=== PATIENT | male | born 1945 | race Caucasian/White ===

== ENCOUNTER 2017-02-02 16:06 | Emergency (ER) | payer OTHER ==
[~2017-02-02] VITALS: Ht 180.3 cm; Wt 80.5 kg
[2017-02-02 16:18] VITALS: TEMP 36.8; Ht 180.3 cm; Wt 80.5 kg
[2017-02-02 16:21] VITALS: O2SAT 95
[2017-02-02] MEDS ORDERED: OPTIRAY 320 IV PRN (17:00)
[2017-02-02 17:17] LABS: HEMATOCRIT 49.1 % (42-52); MEAN CELL VOLUME 97.2 fL (80-100); MEAN CORPUSCULAR HEMOGLOBIN 32.9 pg (25-34); MEAN CORPUSCULAR HGB CONC 33.8 g/dl (32-36); MEAN PLATELET VOLUME 9.7 fL (7.4-10.4); PLATELET COUNT 151 K/uL (130-400); RED BLOOD COUNT 5.05 M/uL (4.7-6.1); WHITE BLOOD COUNT 11.65 K/uL (4.8-10.8)
--- NOTE | 2017-02-02 17:26 | DIAGNOSTIC IMAGING REPORT ---
CHEST 2 VIEWS ROUTINE HISTORY: 71 years-old Male ABDOMINAL PAIN/GI acute generalized abdominal pain with shortness of breath. COMPARISON: None available TECHNIQUE: AP and lateral views of the chest FINDINGS: A lateral view is limited secondary to position of the patient's arms. Cardiac silhouette is upper limits of normal. There is mild pulmonary vascular congestion. Atherosclerosis of the aorta. No pneumothorax. Small left pleural effusion with hazy subsegmental bibasilar opacities. Minimal fluid tracks along the minor fissure. Bones of the chest appear grossly intact. Levoscoliosis of the left thoracic spine noted. IMPRESSION: Mild pulmonary vascular congestion with small left pleural effusion and bibasilar subsegmental opacities suggesting atelectasis. Pneumonia thought to be less likely. The above report was generated using voice recognition software. It may contain grammatical, syntax or spelling errors. Electronically signed by: Paulo Alonso M.D. 02/02/2017 5:25 PM Dictated Date/Time: 02/02/2017 5:23 PM
[2017-02-02 17:32] LABS: ALT/SGPT 38 U/L (12-78); BLOOD UREA NITROGEN 15 mg/dl (7-18); BUN/CREATININE RATIO 12.1 (10-20); CALCIUM 9.5 mg/dl (8.5-10.1); CARBON DIOXIDE 22 mmol/L (21-32); CHLORIDE 106 mmol/L (98-107); CREATININE 1.22 mg/dl (0.60-1.40); GLUCOSE 156 mg/dl (70-99); SODIUM 139 mmol/L (136-145)
[2017-02-02 17:37] LABS: ALKALINE PHOSPHATASE 83 U/L (45-117); AST/SGOT 27 U/L (15-37)
[2017-02-02] MEDS ORDERED: SERT25TA PO (17:45)
[2017-02-02] MEDS ORDERED: METO25TA3 PO (17:45)
[2017-02-02] MEDS ORDERED: FLUT1INH (17:45)
[2017-02-02] MEDS ORDERED: ZNTT/150 PO (17:45)
[2017-02-02] MEDS ORDERED: FURO-85 PO (17:45)
[2017-02-02] MEDS ORDERED: TERB250T51 PO (17:45)
[2017-02-02] MEDS ORDERED: ACET-1256 PO (17:45)
[2017-02-02] MEDS ORDERED: ASPI81TA28 PO (17:45)
[2017-02-02] MEDS ORDERED: ATOR-24 PO (17:45)
[2017-02-02] MEDS ORDERED: TRAZ50TA35 PO (17:45)
[2017-02-02] MEDS ORDERED: PLV75 PO (17:45)
[2017-02-02] MEDS ORDERED: ALBUAER (17:45)
--- NOTE | 2017-02-02 18:19 | DIAGNOSTIC IMAGING REPORT ---
ABD/PELVIS IV CONTRAST ONLY CT DOSE: 596.84 mGy.cm HISTORY: Pain. Nodule. L groin pain/bulging TECHNIQUE: Multiaxial CT images of the abdomen and pelvis were performed following the use of intravenous contrast. A dose lowering technique was utilized adhering to the principles of ALARA. COMPARISON STUDY: None. FINDINGS: Mild bibasilar parenchymal infiltrative change. Liver is uniform throughout. Gallbladder is negative for distention. Pancreas is unremarkable. Right kidney demonstrates a 2.5 mm nonobstructing calcification at its upper pole. No evidence for hydronephrosis. Left kidney demonstrates moderate hydroureteronephrosis. There is moderate perinephric infiltrative change. There is a 3 mm calculus of the involving the distal left ureter. There is a 6 mm calculus of the left ureteral vesicle junction. Bowel pattern is considered nonobstructive throughout. There is small fat-containing left inguinal hernia. There is no evidence of bowel containment. IMPRESSION: 1. 6 mm obstructing calculus left ureterovesical junction. 2. Partial obstructing calculus measuring 3 mm distal aspect left ureter. 3. Moderate left hydroureteronephrosis with moderate perinephric infiltrative change 4. Small fat-containing left inguinal hernia. No evidence for bowel containment or obstruction 5. Bibasilar parenchymal infiltrative change The above report was generated using voice recognition software. It may contain grammatical, syntax or spelling errors. Electronically signed by: Dexter Zamora M.D. 02/02/2017 6:17 PM Dictated Date/Time: 02/02/2017 6:13 PM
--- NOTE | 2017-02-02 18:40 | EMERGENCY ROOM VISIT NOTE ---
ED Visit Note First contact with patient: 16:48 This Patient was discussed with the physician per diem physical therapist assistant, Sukhdev Castro PA-C. The pertinent historical and physical exam findings were confirmed. I agree with the studies ordered and with the interpretations of these studies. I agree with the disposition and care plan.
[2017-02-02 18:55] LABS: URINE APPEARANCE CLEAR (CLEAR); URINE BILIRUBIN NEG (NEG); URINE COLOR YELLOW; URINE NITRITE NEG (NEG); URINE SPECIFIC GRAVITY 1.034 (1.000-1.030); UROBILINOGEN NEG (NEG)
[2017-02-02 19:07] LABS: MANUAL MICROSCOPIC REQUIRED? NO; REVIEW REQ? NO
[2017-02-02] MEDS ORDERED: TAMS0.4C38 PO (19:44)
[2017-02-02] MEDS ORDERED: HYDR-5688 PO (19:44)
[2017-02-02 20:00] VITALS: BP 119/64; PULSE 92; O2SAT 91
[2017-02-02] MEDS ORDERED: TAMSULOSIN HCL 0.4 MG CAP PO ONE (20:00)
[2017-02-02] MEDS ORDERED: NORCO 5/325MG HOME PACK PO ONE (20:00)
[2017-02-02 20:03] LABS: BASO % 0.2 %; BASO ABS # 0.02 K/uL (0-0.2); COMPLETE YES; IG% 0.3 %; MONO % 4.5 %
--- NOTE | 2017-02-02 20:19 | EMERGENCY ROOM VISIT NOTE ---
History First contact with patient: 16:25 Chief Complaint: LEG PAIN,LEG INJURY Stated Complaint: LEFT HIP & LEG PAIN History of Present Illness The patient is a 71 year old male who presents to the Emergency Room with complaints of abrupt onset of severe left groin pain while having a bowel movement this afternoon. The patient reports that the pain radiating into his lower back and down into the left thigh. The daughter reports that the patient called her to the house because of the pain, and the family called 911 for evaluation. The reports that she noticed a large bulge in the left groin at that time, but the bulge has since resolved. The patient was administered IV morphine and Zofran en route, and currently rates his discomfort a 3 out of 10. The patient denies any history of inguinal hernias. The patient does have a significant history of peripheral vascular disease, status post bilateral lower extremity stenting in 2013. The patient does report a prior history of OR. The patient is also on different inhalers for emphysema. The patient reports that his oxygen levels at home are usually in the middle to upper 80s. He denies any recent chest pain, shortness of breath, nausea or diaphoresis. He denies any history of chronic back pain. The patient denies any recent constipation, melena or urinary symptoms. He also denies any left lower extremity paresthesias or numbness. He does have a history of left lower extremity wounds secondary to his peripheral vascular disease that have healed well. The patient also has chronic left-sided weakness secondary to CVA. Review of Systems HEENT: Denies dizziness, visual problems, hearing loss, tinnitus. Denies difficulty swallowing or oral lesions. PULMONARY: Denies cough, shortness of breath, sputum production or hemoptysis. CARDIOVASCULAR: Denies chest pain, palpitations, dyspnea on exertion, orthopnea or peripheral edema. GASTROINTESTINAL: Denies diarrhea, constipation, nausea, vomiting, or abdominal pain. GENITOURINARY: Denies dysuria, frequency, urgency or nocturia. NEUROLOGIC: Denies history of epilepsy, CVA, TIA or chronic headaches. MUSCULOSKELETAL: Denies history of joint tenderness/swelling. SKIN: Denies rashes or lesions. PSYCHIATRIC: Denies history of depression or mental illness. ENDOCRINE: Denies history of diabetes or thyroid disorders. Past Medical/Surgical History Medical Problems: (1) Coronary artery disease (2) Depression (3) GERD (gastroesophageal reflux disease) (4) Hypercholesterolemia (5) Hypertension (6) Myocardial infarction (7) Peripheral vascular disease of lower extremity Surgical Problems: (1) History of peripheral vascular stents Family History Unremarkable Social History Smoking Status: Former Smoker Alcohol Use: none Marital Status: Occupation Status: retired Current/Historical Medications Scheduled Acetaminophen (Tylenol), 2 TAB PO Q6 Aspirin (Aspirin Ec), 81 MG PO DAILY Atorvastatin (Lipitor), 1 TAB PO DAILY Furosemide (Lasix), 1 TAB PO DAILY Metoprolol Succ (Toprol Xl) (Toprol-Xl), 25 MG PO DAILY Ranitidine (Zantac), 1 TAB PO BID Sertraline (Zoloft), 1 TAB PO DAILY Tamsulosin Hcl (Flomax), 0.4 MG PO DAILY Terbinafine Hcl (Lamisil), 1 TAB PO DAILY Scheduled PRN Hydrocodone/Acetaminophen 5MG/325MG ([place] 5MG/325MG), 1-2 TABLET PO Q4H PRN for Pain Miscellaneous Medications Albuterol Sulfate (Proventil Hfa) Clopidogrel Bisulfate (Clopidogrel), 1 TAB PO Fluticasone Furoate-Vilanterol (Breo Ellipta) Trazodone Hcl (Trazodone), 50 MG PO Physical Exam Vital Signs Date Time Temp Pulse Resp B/P (MAP) Pulse Ox O2 Delivery O2 Flow Rate FiO2 02/02/17 20:00 92 18 119/64 91 Room Air 02/02/17 18:15 88 18 137/78 87 Room Air 02/02/17 16:43 85 02/02/17 16:31 95 Nasal Cannula 4.0 02/02/17 16:21 95 Nasal Cannula 4.0 02/02/17 16:18 36.8 91 26 132/55 85 Room Air Physical Exam CONSTITUTIONAL: Healthy and well nourished. Alert and oriented X 3 with positive affect. Patient does not appear in any acute distress. HEENT: Normocephalic, atraumatic. Pupils equal, round and reactive. No scleral icterus or conjunctival injection/pallor. Ears and nares are clear. NECK: Full active range of motion without discomfort. No JVD or carotid bruits noted. RESPIRATORY: Patient has global rhonchi without crackles, wheezing or stridor. CARDIOVASCULAR: Occasional irregular rhythm with no murmurs, rubs or gallops. GASTROINTESTINAL: Bowel sounds present in all quadrants. Abdomen is soft and nontender to palpation. No palpable pulsatile masses noted. Negative CVA tenderness. GENITOURINARY: No palpable scrotal masses or masses within the left inguinal canal. MUSCULOSKELETAL: Full range of motion of all joints without discomfort. The patient has no tenderness to palpation through the lower lumbar spine or SI joints. Negative logroll. Negative straight leg raise. Examination of the left anterior groin does not show any palpable masses or tenderness to palpation through the groin region. Patient has 2+ palpable pedal pulses bilaterally. No pretibial pitting edema bilaterally. INTEGUMENTARY: No rash or other significant dermatologic conditions noted. Patient has notable xerosis of the lower extremities and evidence for a left or extremity wound. HEMATOLOGIC: No ecchymosis or petechiae noted. NEUROLOGIC: No focal neurologic deficits noted. Left foot and toes are sensory intact. Medical Decision & Procedures ER Provider Diagnostic Interpretation: My interpretation of an ECG shows a normal sinus rhythm of [address] elevations or other conduction abnormalities. Computer reading suggest possible age indeterminate inferior and posterior anterior infarcts. No prior ECGs are available for comparison. My interpretation of a two-view chest x-ray does not show any obvious consolidations or cardiac negative. Radiologist report is as follows: CHEST ONE VIEW PORTABLE HISTORY: 50 years-old Female CHEST PAIN acute atypical chest pain COMPARISON: Chest radiograph 10/22/2014 TECHNIQUE: Portable upright AP view of the chest FINDINGS: Cardiomediastinal and hilar silhouettes are within normal limits. No pneumothorax, pleural effusion, focal airspace consolidation or overt pulmonary edema. The bones of the chest are grossly intact. IMPRESSION: No acute cardiopulmonary process. CT of the abdomen and pelvis with IV contrast only shows 2 left distal ureteral calculus with the largest measuring 6 mm at the UVJ. A moderate hydronephrosis is noted as well. Also seen is a fat-containing inguinal hernia. Radiologist report is as follows: ABD/PELVIS IV CONTRAST ONLY CT DOSE: 596.84 mGy.cm HISTORY: Pain. Nodule. L groin pain/bulging TECHNIQUE: Multiaxial CT images of the abdomen and pelvis were performed following the use of intravenous contrast. A dose lowering technique was utilized adhering to the principles of ALARA. COMPARISON STUDY: None. FINDINGS: Mild bibasilar parenchymal infiltrative change. Liver is uniform throughout. Gallbladder is negative for distention. Pancreas is unremarkable. Right kidney demonstrates a 2.5 mm nonobstructing calcification at its upper pole. No evidence for hydronephrosis. Left kidney demonstrates moderate hydroureteronephrosis. There is moderate perinephric infiltrative change. There is a 3 mm calculus of the involving the distal left ureter. There is a 6 mm calculus of the left ureteral vesicle junction. Bowel pattern is considered nonobstructive throughout. There is small fat-containing left inguinal hernia. There is no evidence of bowel containment. IMPRESSION: 1. 6 mm obstructing calculus left ureterovesical junction. 2. Partial obstructing calculus measuring 3 mm distal aspect left ureter. 3. Moderate left hydroureteronephrosis with moderate perinephric infiltrative change 4. Small fat-containing left inguinal hernia. No evidence for bowel containment or obstruction 5. Bibasilar parenchymal infiltrative change Laboratory Results 02/02/17 15:40 Red Blood Count 5.05, Mean Corpuscular Volume 97.2, Mean Corpuscular Hemoglobin 32.9, Mean Corpuscular Hemoglobin Concent 33.8, Mean Platelet Volume 9.7, Neutrophils (%) (Auto) 89.0, Lymphocytes (%) (Auto) 6.0, Monocytes (%) (Auto) 4.5, Eosinophils (%) (Auto) 0.0, Basophils (%) (Auto) 0.2, Neutrophils # (Auto) 10.37, Lymphocytes # (Auto) 0.70, Monocytes # (Auto) 0.53, Eosinophils # (Auto) 0.00, Basophils # (Auto) 0.02 02/02/17 15:40 Test 02/02/17 15:40 02/02/17 18:35 White Blood Count 11.65 K/uL (4.8-10.8) Red Blood Count 5.05 M/uL (4.7-6.1) Hemoglobin 16.6 g/dL (14.0-18.0) Hematocrit 49.1 % (42-52) Mean Corpuscular Volume 97.2 fL (80-100) Mean Corpuscular Hemoglobin 32.9 pg (25-34) Mean Corpuscular Hemoglobin Concent 33.8 g/dl (32-36) Platelet Count 151 K/uL (130-400) Mean Platelet Volume 9.7 fL (7.4-10.4) Neutrophils (%) (Auto) 89.0 % Lymphocytes (%) (Auto) 6.0 % Monocytes (%) (Auto) 4.5 % Eosinophils (%) (Auto) 0.0 % Basophils (%) (Auto) 0.2 % Neutrophils # (Auto) 10.37 K/uL (1.4-6.5) Lymphocytes # (Auto) 0.70 K/uL (1.2-3.4) Monocytes # (Auto) 0.53 K/uL (0.11-0.59) Eosinophils # (Auto) 0.00 K/uL (0-0.5) Basophils # (Auto) 0.02 K/uL (0-0.2) RDW Standard Deviation 53.0 fL (36.4-46.3) RDW Coefficient of Variation 15.0 % (11.5-14.5) Immature Granulocyte % (Auto) 0.3 % Immature Granulocyte # (Auto) 0.03 K/uL (0.00-0.02) Anion Gap 11.0 mmol/L (3-11) Est Creatinine Clear Calc Drug Dose 60.0 ml/min Estimated GFR () 69.2 Estimated GFR (Non- 59.7 BUN/Creatinine Ratio 12.1 (10-20) Calcium Level 9.5 mg/dl (8.5-10.1) Total Bilirubin 0.7 mg/dl (0.2-1) Direct Bilirubin 0.2 mg/dl (0-0.2) Aspartate Amino Transf (AST/SGOT) 27 U/L (15-37) Alanine Aminotransferase (ALT/SGPT) 38 U/L (12-78) Alkaline Phosphatase 83 U/L (45-117) Total Creatine Kinase 125 U/L (39-308) Troponin I < 0.015 ng/ml (0-0.045) Total Protein 7.7 gm/dl (6.4-8.2) Albumin 4.1 gm/dl (3.4-5.0) Lipase 88 U/L (73-393) Urine Color YELLOW Urine Appearance CLEAR (CLEAR) Urine pH 5.0 (4.5-7.5) Urine Specific [place] 1.034 (1.000-1.030) Urine Protein NEG (NEG) Urine Glucose (UA) NEG (NEG) Urine Ketones 1+ (NEG) Urine Occult Blood NEG (NEG) Urine Nitrite NEG (NEG) Urine Bilirubin NEG (NEG) Urine Urobilinogen NEG (NEG) Urine Leukocyte Esterase NEG (NEG) The above labs were reviewed. The patient does have a mild leukocytosis. No anemia or other electrolyte abnormalities. LFTs and lipase are normal. Urinalysis does not show any evidence for infection or hematuria. Medications Administered Medications (Trade) Dose Ordered Sig/Glenn Route Start Time Stop Time Status Last Admin Dose Admin Acetaminophen/ Hydrocodone Bitart ([place] 5/325mg Home Pack) 1 homepack UD ONCE PO 02/02/17 20:00 02/02/17 20:01 DC 02/02/17 20:06 1 HOMEPACK Tamsulosin HCl (Flomax Cap) 0.4 mg NOW ONCE PO 02/02/17 20:00 02/02/17 20:01 DC 02/02/17 20:06 0.4 MG ED Course Patient history and physical exam were performed. Nurse's notes were reviewed. Vital signs were reviewed and were normal except for an O2 saturation that was 85% on room air upon presentation. Adding oxygen via nasal cannula at 2 L/ m increased his O2 saturation is 90%. 4 L/m raised even further to 95%. The patient did not appear in any acute respiratory distress on presentation or during my exam. The patient was left on O2 via nasal cannula at 4 L/m. IV access was established, and labs were drawn. The patient refused any further analgesics, stating that his pain was significantly improved. An ECG was normal. Two-view chest x-ray does not show any consolidations consistent with acute pneumonia. CT of the abdomen and pelvis shows a fat-containing left inguinal hernia, along with 2 distal ureteral calculi with the largest measuring 6 mm and situated at the UVJ. On reassessment, the patient still denies any significant discomfort. The case was further discussed with Dr. Chance, ED attending physician, who agrees with workup, and suggested consultation with urology on-call. The case was further discussed with Dr. Martinez who will see the patient in his office. He recommended analgesics and Flomax. The patient was provided contact information for Dr. Martinez office. He was administered Flomax 0.4 mg while in the emergency department, and received a home pack for [place], and prescriptions for both Flomax and [place]. The patient reports that pain medicines usually cause constipation. He was encouraged to take a stool softener as well. He was instructed to return to the emergency department for any uncontrollable pain, vomiting or fever. I also encouraged the patient to follow-up with his PCP to discuss his inguinal hernia and hypoxia secondary to COPD. The patient currently denies any respiratory symptoms. Because of the patient's presenting symptoms, I did offer hospitalist evaluation and hospital observation. The patient refused, reporting that he wanted to go home with his family. The family was happy with plan of care, and the patient denied any significant discomfort at the time of discharge. Medical Decision Patient presents to emergency Department with primary complaint of severe left groin pain. The was concerned because the patient did have an anterior groin bulge that has now resolved. The CT does show evidence for a fat- containing inguinal hernia. It is possible that he did have a hernia that reduced itself. The patient is also found to have two distal ureteral calculi which also could have contributed to his acute pain. The patient currently does not have any evidence for urinary tract infection. The patient likely has chronic hypoxia secondary to COPD. The patient denies any acute respiratory symptoms at this time, therefore I do not feel that further acute medication management or changes is needed at this time. [place] Drug Monitoring Program Search Results: patient reviewed within database, no issues identified Medication Reconcilliation Current Medication List: was personally reviewed by in Blood Pressure Screening Patient's blood pressure: Normal blood pressure Impression Primary Impression: Calculus of distal left ureter Additional Impressions: Left inguinal hernia COPD with hypoxia Departure Information Prescriptions Hydrocodone/Acetaminophen 5MG/325MG ([place] 5MG/325MG) Tab 1-2 TABLET PO Q4H Y for Pain, #15 TAB For Initial Treatment Prov: Sukhdev Castro PA 02/02/17 Tamsulosin Hcl (FLOMAX) 0.4 Mg Cap 0.4 MG PO DAILY for 7 Days, #7 CAP Prov: Sukhdev Castro PA 02/02/17 Patient Instructions My [facility] Problem Qualifiers
== END 2017-02-02 20:23 | disposition home or self-care (01) ==
LOC: EDBD 16:06 → C.EDC 16:07
DX: N20.1 Calculus of ureter (principal); K40.90 Unilateral inguinal hernia, without obstruction or gangrene, not specified as recurrent; J44.9 Chronic obstructive pulmonary disease, unspecified; I25.10 Atherosclerotic heart disease of native coronary artery without angina pectoris; F32.9 Major depressive disorder, single episode, unspecified; K21.9 Gastro-esophageal reflux disease without esophagitis; E78.00 Pure hypercholesterolemia, unspecified; I10 Essential (primary) hypertension; I21.9 Acute myocardial infarction, unspecified; I73.9 Peripheral vascular disease, unspecified; Z87.891 Personal history of nicotine dependence; Z79.82 Long term (current) use of aspirin